=== PATIENT | female | born 2000 | race American Indian/Alaskan Native ===

== ENCOUNTER 2021-10-09 15:23 | Emergency (ER) | payer MEDICAID, OTHER ==
[2021-10-09] MEDS ORDERED: SODIUM CHLORIDE 0.9% 1000 ML 1,000 ML IV ONE (17:09)
[2021-10-09] MEDS ORDERED: LORazepam 2 MG/ML VIAL IV ONE (17:10)
[2021-10-09 17:59] LABS: Basophils % (Auto) 0.3 % (0.0-1.8); Hematocrit 36.5 % (30.3-42.9); Hemoglobin 11.8 gm/dl (10.1-14.3); Lymphocytes # (Auto) 1.5 K/mm3 (1.2-5.4); Mean Corpuscular HGB Conc 33 % (30-34); Mean Corpuscular Volume 92 fl (79-97); Monocytes # (Auto) 0.8 K/mm3 (0.0-0.8); Monocytes % (Auto) 9.5 % (0.0-7.3); Platelet Count 263 K/mm3 (140-440); Red Blood Count 3.97 M/mm3 (3.65-5.03); Red Cell Distribution Width 13.5 % (13.2-15.2)
[2021-10-09 18:26] LABS: Alanine Aminotransferase 53 units/L (7-56); Albumin 4.8 g/dL (3.9-5); BUN/Creatinine Ratio 13; Blood Urea Nitrogen 12 mg/dL (7-17); Hemolysis Index 8
[2021-10-09 18:38] LABS: Amphetamine Screen,Urine Negative; Benzodiazepines Screen,Urine Negative; Cocaine Screen,Urine Negative; Methadone Screen,Urine Negative; Opiate Screen,Urine Negative
--- NOTE | 2021-10-09 18:38 | Emergency Department Report ---
ED Psych HPI - General Chief Complaint: Psych Stated Complaint: BEHAVIORAL PROBLEMS Time Seen by Provider: 10/09/21 17:06 Source: family, EMS Mode of arrival: Stretcher - History of Present Illness Initial Comments: Anxiety, depression, was being checvked into [facility], began shaking, nonverbal. 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 Complaint: feels depressed -: days(s) Associated Psychiatric Symptoms: depression Quality: constant Improves With: none Context: recent drug abuse Associated Symptoms: denies: denies other symptoms, headache - Related Data Previous Rx's Medication Instructions Recorded Last Taken Type Sertraline [Zoloft] 25 mg PO QDAY 30 Days #30 tab 10/10/21 Unknown Rx traZODone [Desyrel] 50 mg PO QHS 30 Days #30 tab 10/10/21 Unknown Rx Allergies Allergy/AdvReac Type Severity Reaction Status Date / Time No Known Allergies Allergy Unverified 02/09/16 12:32 ED Review of Systems ROS: Stated complaint: BEHAVIORAL PROBLEMS Other details as noted in HPI Comment: Unobtainable due to pts medical conditions ED Past Medical Hx - Past Medical History Previous Medical History?: Yes Hx Hypertension: No Hx CVA: No Hx Heart Attack/AMI: No Hx Congestive Heart Failure: No Hx Diabetes: No Hx Deep Vein Thrombosis: No Hx Pulmonary Embolism: No Hx GERD: No Hx Liver Disease: No Hx Renal Disease: No Hx of Cancer: No Hx Sickle Cell Disease: No Hx Arthritis: No Hx Headaches / Migraines: Yes Hx Seizures: No Hx Kidney Stones: No Hx Psychiatric Treatment: Yes Hx Asthma: No Hx COPD: No Hx Tuberculosis: No Hx Dementia: No Hx HIV: No - Surgical History Past Surgical History?: No Hx Coronary Stent: No Hx Open Heart Surgery: No Hx Pacemaker: No Hx Internal Defibrillator: No Hx Cholecystectomy: No Hx Appendectomy: No Hx Breast Surgery: No - Social History Smoking Status: Never Smoker Substance Use Type: None - Medications Home Medications: Home Medications Medication Instructions Recorded Confirmed Last Taken Type Sertraline [Zoloft] 25 mg PO QDAY 30 Days #30 tab 10/10/21 Unknown Rx traZODone [Desyrel] 50 mg PO QHS 30 Days #30 tab 10/10/21 Unknown Rx ED Physical Exam - General Limitations: Altered Mental Status General appearance: anxious - Head Head exam: Present: atraumatic, normocephalic - Eye Eye exam: Present: normal appearance - ENT ENT exam: Present: mucous membranes moist - Neck Neck exam: Present: normal inspection - Respiratory Respiratory exam: Present: normal lung sounds bilaterally. Absent: respiratory distress - Cardiovascular Cardiovascular Exam: Present: normal rhythm, tachycardia. Absent: systolic murmur, diastolic murmur, rubs, gallop - GI/Abdominal GI/Abdominal exam: Present: soft, normal bowel sounds - Extremities Exam Extremities exam: Present: normal inspection - Back Exam Back exam: Present: normal inspection - Neurological Exam Neurological exam: Present: alert, oriented X3 - Psychiatric Psychiatric exam: Present: normal affect, normal mood - Skin Skin exam: Present: warm, dry, intact, normal color. Absent: rash ED Course Vital Signs 10/09/21 10/09/21 10/09/21 17:18 17:31 17:45 Temperature Pulse Rate 122 H 121 H Respiratory 21 13 15 Rate Blood Pressure 122/68 Blood Pressure [Left] O2 Sat by Pulse 100 100 Oximetry 10/09/21 10/09/21 10/09/21 18:01 18:13 18:15 Temperature Pulse Rate 129 H Respiratory 32 H 12 11 L Rate Blood Pressure 122/68 128/68 Blood Pressure [Left] O2 Sat by Pulse 100 100 Oximetry 10/09/21 10/09/21 10/09/21 18:21 20:15 20:31 Temperature 98.8 F Pulse Rate 125 H 119 H 123 H Respiratory 13 15 22 Rate Blood Pressure 112/54 116/57 Blood Pressure 128/68 [Left] O2 Sat by Pulse 100 100 100 Oximetry 10/09/21 10/09/21 10/09/21 20:45 21:01 21:15 Temperature Pulse Rate 124 H 111 H 112 H Respiratory 18 14 17 Rate Blood Pressure 110/59 114/65 125/55 Blood Pressure [Left] O2 Sat by Pulse 100 100 99 Oximetry 10/09/21 10/09/21 10/09/21 21:31 21:45 22:01 Temperature Pulse Rate 117 H 120 H 107 H Respiratory 15 17 21 Rate Blood Pressure 118/65 119/57 121/51 Blood Pressure [Left] O2 Sat by Pulse 100 100 100 Oximetry 10/09/21 10/09/21 10/09/21 22:15 22:31 22:45 Temperature Pulse Rate 119 H 120 H 116 H Respiratory 13 13 20 Rate Blood Pressure 120/59 122/66 113/61 Blood Pressure [Left] O2 Sat by Pulse 100 100 100 Oximetry 10/09/21 10/09/21 10/09/21 23:01 23:15 23:31 Temperature Pulse Rate 114 H 118 H 126 H Respiratory 16 20 14 Rate Blood Pressure 123/74 114/74 109/55 Blood Pressure [Left] O2 Sat by Pulse 100 100 100 Oximetry 10/09/21 10/10/21 10/10/21 23:45 00:01 00:15 Temperature Pulse Rate 97 H 105 H 116 H Respiratory 19 31 H 16 Rate Blood Pressure 101/40 115/63 115/56 Blood Pressure [Left] O2 Sat by Pulse 98 99 99 Oximetry 10/10/21 10/10/21 10/10/21 00:31 00:45 01:01 Temperature Pulse Rate 109 H 87 82 Respiratory 19 17 17 Rate Blood Pressure 103/54 92/43 84/39 Blood Pressure [Left] O2 Sat by Pulse 100 98 98 Oximetry 10/10/21 10/10/21 10/10/21 01:15 01:31 01:45 Temperature Pulse Rate 80 70 118 H Respiratory 16 17 17 Rate Blood Pressure 94/45 115/76 126/56 Blood Pressure [Left] O2 Sat by Pulse 98 100 100 Oximetry 10/10/21 10/10/21 10/10/21 02:01 02:15 02:31 Temperature Pulse Rate 94 H 70 82 Respiratory 17 15 18 Rate Blood Pressure 110/68 109/65 115/59 Blood Pressure [Left] O2 Sat by Pulse 100 99 99 Oximetry 10/10/21 10/10/21 10/10/21 02:45 03:01 03:15 Temperature Pulse Rate 76 77 71 Respiratory 17 16 16 Rate Blood Pressure 97/52 94/46 91/46 Blood Pressure [Left] O2 Sat by Pulse 98 98 99 Oximetry 10/10/21 10/10/21 10/10/21 03:31 03:45 04:01 Temperature Pulse Rate 66 101 H 102 H Respiratory 14 11 L 20 Rate Blood Pressure 108/57 89/60 102/60 Blood Pressure [Left] O2 Sat by Pulse 100 100 100 Oximetry 10/10/21 10/10/21 10/10/21 04:15 04:31 04:45 Temperature Pulse Rate 97 H 112 H 78 Respiratory 16 20 18 Rate Blood Pressure 117/69 126/74 111/53 Blood Pressure [Left] O2 Sat by Pulse 100 100 100 Oximetry 10/10/21 10/10/21 10/10/21 05:01 05:15 05:31 Temperature Pulse Rate 86 82 73 Respiratory 14 19 19 Rate Blood Pressure 103/40 95/49 97/45 Blood Pressure [Left] O2 Sat by Pulse 100 99 100 Oximetry 10/10/21 10/10/21 10/10/21 05:45 06:01 06:15 Temperature Pulse Rate 87 80 76 Respiratory 14 18 17 Rate Blood Pressure 109/59 110/58 109/66 Blood Pressure [Left] O2 Sat by Pulse 100 98 98 Oximetry 10/10/21 10/10/21 10/10/21 06:31 06:45 07:01 Temperature Pulse Rate 99 H 107 H 104 H Respiratory 12 14 17 Rate Blood Pressure 104/50 101/51 113/58 Blood Pressure [Left] O2 Sat by Pulse 98 100 100 Oximetry 10/10/21 10/10/21 10/10/21 07:15 07:45 08:01 Temperature Pulse Rate 69 92 H 94 H Respiratory 17 14 19 Rate Blood Pressure 108/51 117/59 109/62 Blood Pressure [Left] O2 Sat by Pulse 99 100 100 Oximetry 10/10/21 10/10/21 08:15 08:31 Temperature Pulse Rate 114 H 94 H Respiratory 21 12 Rate Blood Pressure 100/52 104/55 Blood Pressure [Left] O2 Sat by Pulse 100 100 Oximetry ED Medical Decision Making - Lab Data Result diagrams: 10/09/21 17:41 10/09/21 Unknown Critical care attestation.: If time is entered above; I have spent that time in minutes in the direct care of this critically ill patient, excluding procedure time. ED Disposition Clinical Impression: Anxiety, Depression Disposition: 01 HOME / SELF CARE / HOMELESS Is pt being admited?: No Does the pt Need Aspirin: No Condition: Stable Additional Instructions: OUTPATIENT MENTAL HEALTH RESOURCES [facility], [facility] Bridgett Green MD: [address] [place] [address] [place] [address] [place] [facility]: [facility] [address] [place] [address] [place], [place] [id number] [phone] [facility]: [facility]: [address] [facility] [place] [address] [facility] [id number] [facility]: Palmer Torres MD: [id number] [facility] [address] [facility] [id number] [facility]: [address] [place] [address] [phone] [place] CRISIS AND ACCESS LINE: Prescriptions: traZODone [Desyrel] 50 mg PO QHS 30 Days #30 tab Sertraline [Zoloft] 25 mg PO QDAY 30 Days #30 tab Referrals: PRIMARY CARE, [Primary Care Provider] - 3-5 Days Forms: Work/School Release Form(ED)
[2021-10-09 18:41] LABS: Bilirubin,Urine NEG (Negative); Blood,Urine NEG (Negative); Color,Urine Yellow (Yellow); Urobilinogen,Urine < 2.0 mg/dL (<2.0)
[2021-10-09 18:42] LABS: Mucus,Urine FEW /HPF; WBC,Urine < 1.0 /HPF (0.0-6.0)
[2021-10-09 18:43] LABS: Cannabinoid Screen,Urine Positive
[2021-10-10] MEDS: LORazepam 1 MG TAB PO ONE ×2 (01:56→07:47)
[2021-10-10 08:37] VITALS: BP 104/55
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
== END 2021-10-10 12:32 | disposition home or self-care (01) ==
LOC: ED 15:23
DX: F41.9 Anxiety disorder, unspecified (principal); F32.9 Major depressive disorder, single episode, unspecified; Z20.822 Contact with and (suspected) exposure to COVID-19; G43.909 Migraine, unspecified, not intractable, without status migrainosus; Z79.899 Other long term (current) drug therapy
CPT/HCPCS: 36415; 80053; 80307; 81001; 84703; 85025; 96361; 96374; 99284; J2060; J7030; U0003; 80320; Q0162; G0480